=== PATIENT | male | born 1975 | race Caucasian/White ===

== ENCOUNTER 2018-09-25 22:18 | Emergency (ER) | payer BC ==
[~2018-09-25] VITALS: Ht 177.8 cm; Wt 82.2 kg
[2018-09-25] MEDS ORDERED: MONT10TA2 (22:24)
[2018-09-25] MEDS ORDERED: LEVOTAB10 (22:24)
[2018-09-25] MEDS ORDERED: HYDR25TAB (22:24)
[2018-09-25 22:38] VITALS: BP 140/93
[2018-09-25] MEDS ORDERED: predniSONE 20 MG TAB PO ONE (23:15)
[2018-09-25] MEDS ORDERED: diphenhydrAMINE 25 MG CAP PO ONE (23:15)
== END 2018-09-26 00:01 | disposition home or self-care (01) ==
LOC: M ED 22:18
DX: L29.9 Pruritus, unspecified (principal); T63.441A Toxic effect of venom of bees, accidental (unintentional), initial encounter; Y92.9 Unspecified place or not applicable; Y93.H2 Activity, gardening and landscaping; I10 Essential (primary) hypertension; Z79.899 Other long term (current) drug therapy